=== PATIENT | male | born 1975 | race Caucasian/White ===

== ENCOUNTER 2024-06-02 10:39 | Emergency (ER) | payer SELFPAY ==
[2024-06-02] MEDS: Ketorolac 30 MG/ML SDV IM ONE (10:54)
[2024-06-02] MEDS ORDERED: Naloxone 0.4 MG/ML SDV IVPUSH PRN (11:46)
[2024-06-02] MEDS: HYDROmorphone 0.5 MG/0.5 ML Syringe IVPUSH ONE (12:19)
[2024-06-02] MEDS: methylPREDNISolone Sodium Succinate 125 MG/2 ML SDV IVPUSH ONE (12:19)
[2024-06-02] MEDS: Ondansetron 4 MG/2 ML SDV IVPUSH ONE (12:19)
[2024-06-02] MEDS: Orphenadrine 60 MG/2 ML Inj IV ONE (12:19)
[2024-06-02] MEDS: Take Home: predniSONE 20 MG, 4 Tab Pack PO ONE (12:20)
[2024-06-02] MEDS: Take Home: oxyCODONE HCl 5 MG Tab, 5 Tab Pack PO ONE (12:20)
[2024-06-02] MEDS: Sodium Chloride 0.9% 10 ML Syringe FLUSH PRN (12:21)
== END 2024-06-02 13:05 | disposition home or self-care (01) ==
LOC: LL.ED 10:39
DX: G89.29 Other chronic pain (principal); M54.50 Low back pain, unspecified; Z79.899 Other long term (current) drug therapy
CPT/HCPCS: 96372; 96374; 96375; 99283-25; A9270-GY; J1171; J1885; J2360; J2405; J2919

== ENCOUNTER 2025-05-09 10:52 | Emergency (ER) | payer BC, MEDICAID ==
[2025-05-09] MEDS: FLU (Fluarix Triv) 25-26 (6MOS UP)/PF 45 MCG/0.5 ML Syringe IM ONE (11:28)
[2025-05-09 11:33] VITALS: BP 122/81; PULSE 90
== END 2025-05-09 12:06 ==
LOC: LL.ED 10:52
DX: S61.032A Puncture wound without foreign body of left thumb without damage to nail, initial encounter (principal); L03.012 Cellulitis of left finger; F17.200 Nicotine dependence, unspecified, uncomplicated; Z88.8 Allergy status to other drugs, medicaments and biological substances; Z23 Encounter for immunization; Z79.899 Other long term (current) drug therapy; X58.XXXA Exposure to other specified factors, initial encounter; Y93.89 Activity, other specified
CPT/HCPCS: 73140-FA; 90471; 90656; 99283-25